=== PATIENT | female | born 1975 | race Two or more races ===

== ENCOUNTER → 2020-05-30 | Outpatient (CLI) | payer OTHER ==
--- NOTE | 2020-05-30 16:05 | RAD ---
XR BILATERAL HIP (WITH OR WITHOUT PELVIS) 2 VIEWS_RIGHT History: Right hip pain Comparison: None. Technique: AP and frog-leg lateral views of the right hip. Findings: Extensive postsurgical features of the right iliac bone with plate and screw fixation along the all a nd lateral portions. No screw loosening or component fracture. No fracture or dislocation. No destructive osseous lesions are seen. Degenerative-posttraumatic changes at the right hip with femoral head collar osteophytes, femoral ellen tabular joint space narrowing, presumed articular body measuring up to 1.6 cm. Prominent osseous contour at the anterior femoral head neck junction. Soft tissues are normal. Impression: 1. Extensive postsurgical features of the right iliac bone and acetabulum without acute osseous abno rmality. 2. Advanced degenerative changes at the right hip with joint space narrowing, osteophytes and articu lar bodies. 3. Hip morphology which can predispose to impingement symptoms. Electronically signed by: Alexys Fuentes MD (05/30/2020 4:03 PM) [facility]
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
== END ==
LOC: RAD 09:30
PROVIDERS: ATTEND Family Medicine
DX: M16.11 Unilateral primary osteoarthritis, right hip (principal); Z98.1 Arthrodesis status
CPT/HCPCS: 72040; 73502